=== PATIENT | female | born 1955 | race Caucasian/White ===

== ENCOUNTER 2019-01-14 12:10 | Emergency (ER) | payer BC ==
[~2019-01-14] VITALS: Ht 165.1 cm; Wt 74.6 kg
[2019-01-14 12:23] VITALS: BP 125/65; Ht 165.1 cm; Wt 74.6 kg
== END 2019-01-14 14:25 | disposition home or self-care (01) ==
LOC: ED 12:10
DX: M25.572 Pain in left ankle and joints of left foot (principal); M25.561 Pain in right knee; I10 Essential (primary) hypertension; J44.9 Chronic obstructive pulmonary disease, unspecified; Z98.890 Other specified postprocedural states; Z88.1 Allergy status to other antibiotic agents